=== PATIENT | female | born 1955 | race Two or more races ===

== ENCOUNTER 2023-07-28 06:50 | Inpatient (IN) | payer OTHER ==
[~2023-07-28] VITALS: Ht 165.1 cm; Wt 77.1 kg
[~2023-07-28 06:50] MED LIST: BACLOFEN10 MG PO; CLONAZEPAM0.5 MG PO; CYMBALTA20 MG PO; EVISTA60 MG PO; FIORICET TABLET1 TAB PO; SYNTHROID175 MCG PO; TOPROL XL25 M1 PO
[2023-07-28 14:21] LABS: ALBUMIN 3.4 gm/dL (3.4-5.0); BILIRUBIN TOTAL 0.42 mg/dL (0.3-1.2); CALCIUM 8.3 mg/dL (8.5-10.1); CREATININE SERUM 0.81 mg/dL (0.55-1.02); GFR 69.9; GLOBULINA 2.2 G/DL (2.4-3.5); POTASSIUM 4.46 mEq/L (3.5-5.1); TOTAL PROTEIN 5.6 gm/dL (6.4-8.2)
[2023-07-28 18:21] LABS: HEMATOCRIT 40.1 % (36.0-45.00); HEMOGLOBIN 13.5 g/dL (12.0-15.00); MEAN CELL VOLUME 93.8 fL (80.00-100.00); MEAN CORPUSCULAR HEMOGLOBIN 31.6 pg (27.00-32.0); MEAN CORPUSCULAR HGB CONC 33.7 g/dl (32.0-36.0); PLATELET COUNT 203 K/uL (150-450); RED BLOOD COUNT 4.28 M/uL (4.00-6.00); RED CELL DISTRIBUTION WIDTH 13.3 % (11.5-14.5)
[2023-07-28 22:24] LABS: ALT/SGPT 291 U/L (12-78); AST/SGOT 253 U/L (15-37); LDH 391 U/L (84-246); PHOSPHOKINASE CREATININE 135 U/L (26-192)
[2023-07-29 02:54] LABS: ABG PH 7.408 (7.35-7.45); ABG PO2 165.5 mmHg (80-100); ABG pCO2 37.3 mmHg (35-45); BASE EXCESS -1.2 mmol/l; SaO2 99.5 %; Tco2 24.1 mmol/l
[2023-07-29 02:55] LABS: allen test SATISFACTORY; o2 36 %; puncture site RADIAL RIGHT
[2023-07-29 07:03] LABS: HEMATOCRIT 33.9 % (36.0-45.00); HEMOGLOBIN 11.9 g/dL (12.0-15.00); MEAN CELL VOLUME 93.1 fL (80.00-100.00); MEAN CORPUSCULAR HEMOGLOBIN 32.7 pg (27.00-32.0); MEAN CORPUSCULAR HGB CONC 35.2 g/dl (32.0-36.0); PLATELET COUNT 153 K/uL (150-450); RED BLOOD COUNT 3.64 M/uL (4.00-6.00); RED CELL DISTRIBUTION WIDTH 13.1 % (11.5-14.5)
[2023-07-29 07:23] LABS: ALBUMIN 3.3 gm/dL (3.4-5.0); BILIRUBIN TOTAL 0.49 mg/dL (0.3-1.2); CALCIUM 7.8 mg/dL (8.5-10.1); CREATININE SERUM 0.74 mg/dL (0.55-1.02); GFR 77.59; GLOBULINA 2.2 G/DL (2.4-3.5); MAGNESIUM 2.1 mg/dL (1.8-2.4); POTASSIUM 4.55 mEq/L (3.5-5.1); TOTAL PROTEIN 5.5 gm/dL (6.4-8.2)
[2023-07-30 07:09] LABS: ALT/SGPT 168 U/L (12-78); AST/SGOT 87 U/L (15-37); LDH 238 U/L (84-246); PHOSPHOKINASE CREATININE 104 U/L (26-192)
[2023-07-31 06:14] LABS: MEAN CELL VOLUME 92.5 fL (80.00-100.00); MEAN CORPUSCULAR HEMOGLOBIN 31.9 pg (27.00-32.0); MEAN CORPUSCULAR HGB CONC 34.5 g/dl (32.0-36.0); PLATELET COUNT 152 K/uL (150-450); RED BLOOD COUNT 3.46 M/uL (4.00-6.00); RED CELL DISTRIBUTION WIDTH 13.3 % (11.5-14.5)
[2023-07-31 06:48] LABS: ALBUMIN 3.3 gm/dL (3.4-5.0); BILIRUBIN TOTAL 0.32 mg/dL (0.3-1.2); CALCIUM 8.4 mg/dL (8.5-10.1); CREATININE SERUM 0.46 mg/dL (0.55-1.02); GFR 134.29; GLOBULINA 2.3 G/DL (2.4-3.5); POTASSIUM 3.79 mEq/L (3.5-5.1); TOTAL PROTEIN 5.6 gm/dL (6.4-8.2)
[2023-07-31] MEDS ORDERED: DUI500 PO (18:10)
[2023-07-31] MEDS ORDERED: TOPROL XL25 M1 PO (18:10)
[2023-07-31] MEDS ORDERED: CLONAZEPAM0.5 MG PO (18:11)
[2023-07-31] MEDS ORDERED: FAMOTIDINE20 MG PO (18:11)
[2023-07-31] MEDS ORDERED: LEVO-T137 MCG PO (18:12)
[2023-07-31] MEDS ORDERED: B Complex PO (18:12)
[2023-07-31] MEDS ORDERED: COLCHICINE0.6 MG PO (18:12)
[2023-07-31] MEDS ORDERED: OXYC1TAB9 PO (18:13)
== END 2023-07-31 18:37 | disposition home or self-care (01) | DRG 580 ==
LOC: CIR.AMB 06:50 → O/R 14:13 → ICU 14:13 → SURG 14:41 → ICU 22:34 → MEDI 07-30 13:46
PROVIDERS: Anesthesiology; Internal Medicine; Specialist; ADMIT Internal Medicine Hematology & Oncology; ATTEND Internal Medicine Hematology & Oncology
PROC: BB24ZZZ Computerized Tomography (CT Scan) of Bilateral Lungs (ICD-10-PCS; 2023-07-28)
PROC: B246ZZZ Ultrasonography of Right and Left Heart (ICD-10-PCS; 2023-07-28)
PROC: 0JHD3WZ Insertion of Totally Implantable Vascular Access Device into Right Upper Arm Subcutaneous Tissue and Fascia, Percutaneous Approach (ICD-10-PCS; principal; 2023-07-28 09:30)
PROC: CB121ZZ Planar Nuclear Medicine Imaging of Lungs and Bronchi using Technetium 99m (Tc-99m) (ICD-10-PCS; 2023-07-29)
PROC: 4A12X4Z Monitoring of Cardiac Electrical Activity, External Approach (ICD-10-PCS; 2023-07-30)
DX: C50.912 Malignant neoplasm of unspecified site of left female breast (principal); C77.3 Secondary and unspecified malignant neoplasm of axilla and upper limb lymph nodes; I31.39 Other pericardial effusion (noninflammatory); I31.9 Disease of pericardium, unspecified; I51.3 Intracardiac thrombosis, not elsewhere classified; I95.81 Postprocedural hypotension; I10 Essential (primary) hypertension; Z87.891 Personal history of nicotine dependence
CPT/HCPCS: 71275

== ENCOUNTER 2023-08-28 14:39 | Outpatient (CLI) | payer OTHER ==
[~2023-08-28 14:39] MED LIST changes: +B Complex PO; +COLCHICINE0.6 MG PO; +DUI500 PO; +FAMOTIDINE20 MG PO; +LEVO-T137 MCG PO; +OXYC1TAB9 PO
== END 2023-08-28 14:44 | disposition home or self-care (01) ==
LOC: NUCLEAR 14:39
PROVIDERS: ATTEND Internal Medicine Hematology & Oncology
DX: I82.621 Acute embolism and thrombosis of deep veins of right upper extremity (principal)

== ENCOUNTER 2025-01-02 09:24 | Emergency (ER) | payer OTHER ==
[~2025-01-02] VITALS: Ht 162.6 cm; Wt 72.6 kg
[2025-01-02] MEDS ORDERED: FENTANYL1 EAC3 (09:36)
[2025-01-02] MEDS ORDERED: MORPHINE SULFATE 4 MG/ML VIAL IV ONE ×3 (09:45→15:30)
[2025-01-02 13:16] LABS: PH,URINE 5.5 (5.0-8.0); URINE APPEARANCE Clear; URINE BILIRRUBIN Negative (NEGATIVE); URINE BLOOD Moderate; URINE COLOR Yellow; URINE GLUCOSE Negative (NEGATIVE); URINE LEUKOCYTE Negative; URINE NITRATE Negative; URINE PROTEIN Negative (NEGATIVE); URINE UROBILINOGEN 0.2 E.U./dl
[2025-01-02 13:20] LABS: URINE BACTERIA 7.3 uL (0.0-1933); URINE EPITHELIAL CELLS 7.1 uL (0.0-38.8); URINE RBC 50.8 uL (0.0-20.8); URINE WBC 8.5 uL (0.0-23.2)
[2025-01-02 13:31] LABS: URINE CAST 1.17 uL (0.0-1.40); URINE KETONE 80 (NEGATIVE)
[2025-01-02 14:06] LABS: HEMATOCRIT 40.7 % (34.1-44.9); HEMOGLOBIN 13.5 g/dL (11.2-15.7); LYMPH % 5.6 % (19.3-53.1); MEAN CORPUSCULAR HEMOGLOBIN 29.7 pg (25.6-32.2); MONO % 5.7 % (4.7-12.5); NEUT % 87.9 % (34.0-71.1); PLATELET COUNT 234 K/uL (163-369); RED BLOOD COUNT 4.54 M/uL (3.93-5.22)
[2025-01-02 14:07] LABS: BASO % 0.3 % (0.1-1.2); EOS % 0.1 % (0.7-7.0)
[2025-01-02 14:28] LABS: EOS # 0.01 (0.04-0.54); LYMPH # 0.42 (1.18-3.74); MONO # 0.43 (0.24-0.82); NEUT # 6.65 (1.56-6.13)
== END 2025-01-02 18:20 | disposition home or self-care (01) ==
LOC: ER 09:24
PROVIDERS: Emergency Medicine
DX: Z88.1 Allergy status to other antibiotic agents (principal); Z91.013 Allergy to seafood; S39.82XA Other specified injuries of lower back, initial encounter; W19.XXXA Unspecified fall, initial encounter; Y93.89 Activity, other specified; Y92.098 Other place in other non-institutional residence as the place of occurrence of the external cause; Y99.8 Other external cause status
CPT/HCPCS: 36415; 51702; 72131; 96365; 99284; J2270 ×2

== ENCOUNTER 2025-01-06 10:30 | Emergency (ER) | payer OTHER ==
[~2025-01-06] VITALS: Ht 162.6 cm; Wt 72.6 kg
[~2025-01-06 10:30] MED LIST changes: +FENTANYL1 EAC3
[2025-01-06] MEDS ORDERED: 0.9 % SODIUM CHLORIDE 1,000 ML IV SCH (10:45)
[2025-01-06 11:19] LABS: BASO % 0.3 % (0.1-1.2); EOS # 0.03 (0.04-0.54); EOS % 0.5 % (0.7-7.0); HEMATOCRIT 38.5 % (34.1-44.9); HEMOGLOBIN 13.2 g/dL (11.2-15.7); LYMPH # 0.39 (1.18-3.74); LYMPH % 6.5 % (19.3-53.1); MEAN CORPUSCULAR HEMOGLOBIN 29.7 pg (25.6-32.2); MONO # 0.66 (0.24-0.82); NEUT # 4.86 (1.56-6.13); NEUT % 81.2 % (34.0-71.1); PLATELET COUNT 212 K/uL (163-369); RED BLOOD COUNT 4.44 M/uL (3.93-5.22); RED CELL DISTRIBUTION WIDTH 12.9 % (11.6-14.4)
[2025-01-06 11:27] LABS: URINE APPEARANCE Clear; URINE BILIRRUBIN Negative (NEGATIVE); URINE BLOOD Small; URINE COLOR Yellow; URINE GLUCOSE Negative (NEGATIVE); URINE KETONE 15 (NEGATIVE); URINE LEUKOCYTE Negative; URINE NITRATE Negative; URINE PROTEIN Trace (NEGATIVE); URINE UROBILINOGEN 0.2 E.U./dl
[2025-01-06 11:33] LABS: URINE BACTERIA 7.3 uL (0.0-1933); URINE EPITHELIAL CELLS 1.8 uL (0.0-38.8); URINE RBC 43.7 uL (0.0-20.8); URINE WBC 2.3 uL (0.0-23.2)
[2025-01-06 11:50] LABS: TYPE CELLS SQUAMOUS
[2025-01-06 11:58] LABS: CALCIUM 9.7 mg/dL (8.5-10.1); CREATININE SERUM 0.9 mg/dL (0.55-1.02); GFR 61.72; POTASSIUM 3.69 mEq/L (3.5-5.1)
[2025-01-06] MEDS ORDERED: MORPHINE SULFATE 4 MG/ML VIAL IV ONE (15:00)
== END 2025-01-06 16:26 | disposition home or self-care (01) ==
LOC: ER 10:30
PROVIDERS: Emergency Medicine
DX: R33.8 Other retention of urine (principal); Z91.013 Allergy to seafood; Z88.6 Allergy status to analgesic agent; Z91.041 Radiographic dye allergy status; Z85.3 Personal history of malignant neoplasm of breast; Z85.89 Personal history of malignant neoplasm of other organs and systems; C50.912 Malignant neoplasm of unspecified site of left female breast; C77.3 Secondary and unspecified malignant neoplasm of axilla and upper limb lymph nodes
CPT/HCPCS: 36415; 51702; 96365; 96366; 99283; J2270; J7030

== ENCOUNTER 2025-01-17 09:26 | Inpatient (IN) | payer OTHER ==
[~2025-01-17] VITALS: Ht 167.6 cm; Wt 79.4 kg
--- NOTE | 2025-01-17 09:39 | NUR ---
SE RECIBE PTE EN AMBULANCIA EN COMPANIA DE PARAMEDICOS. PTE REFIERE HEMATURIA, DOLOR ABDOMINAL, DYSPHAGIA.
--- NOTE | 2025-01-17 09:40 | NUR ---
SE RECIBE PTE EN AMBULANCIA EN COMPANIA DE PARAMEDICOS. PTE REFIERE HEMATURIA, DOLOR ABDOMINAL Y NO PUEDE TRAGAR. PTE DE LA . SE MEHUL SV Y SE UBICA
[2025-01-17] MEDS ORDERED: 0.9 % SODIUM CHLORIDE 1,000 ML IV SCH ×2 (10:00→22:30)
--- NOTE | 2025-01-17 10:10 | NUR ---
RN JOSHI ORIENTA SOBRE [place] MEDICO Y LA MISMA REFIERE ACEPTAR. COLECTA MUESTRAS DE LAB BAJO MEDIDAS ASEPTICAS. SE NOTIFICA XRAY PENDIENTE
[2025-01-17 10:32] LABS: BASO % 0.2 % (0.1-1.2); EOS # 0.11 (0.04-0.54); EOS % 1.0 % (0.7-7.0); LYMPH # 0.08 (1.18-3.74); LYMPH % 0.8 % (19.3-53.1); MEAN PLATELET VOLUME 11.40 fl (9.4-12.4); MONO # 0.18 (0.24-0.82); MONO % 1.7 % (4.7-12.5); NEUT # 10.14 (1.56-6.13); NEUT % 95.5 % (34.0-71.1); RED CELL DISTRIBUTION WIDTH 12.8 % (11.6-14.4)
[2025-01-17 11:09] LABS: COVID-19 AG NEGATIVE (NEGATIVE)
--- NOTE | 2025-01-17 11:22 | NUR ---
PTE EVALUADO POR DR. HILTON, PRESENTANDO DOLOR GENERALIZADO UBICADO EN SECCION K9 JUNTO A FAMILIAR, SE REMUEVE CONN CATHETER CON MAS DE DOS SEMANAS DE INSECCION Y SE INSERTA CONN CATHETER #16 BAJO MEDIDAS ASEPTICAS Y SE COLECTA MUESTRA DE PAULA BAJO MEDIDAS ASEPTICAS. CLIENTE Y FAMILIAR SON ORIENTADOS SOBRE PROCEDIMIENTOS REALIZADOS Y PROCESO DE RE-EVALUACION MEDICA. SE M,ANTIENE EN OBSERVACION POR CAMBIOS DENTRO DE MARSHALL CONDICION.
[2025-01-17 11:38] LABS: URINE APPEARANCE Turbid; URINE BILIRRUBIN Small (NEGATIVE); URINE BLOOD Large; URINE COLOR Orange; URINE GLUCOSE Negative (NEGATIVE); URINE LEUKOCYTE Large; URINE NITRATE Positive; URINE UROBILINOGEN 1.0 E.U./dl
[2025-01-17 11:58] LABS: URINE BACTERIA > 9821.5 uL (0.0-1933); URINE CAST 0.00 uL (0.0-1.40); URINE EPITHELIAL CELLS 0.9 uL (0.0-38.8); URINE KETONE >=160 (NEGATIVE); URINE PROTEIN 300 (NEGATIVE); URINE RBC > 10558.9 uL (0.0-20.8); URINE WBC > 5548.3 uL (0.0-23.2)
[2025-01-17] MEDS ORDERED: ONDANSETRON HCL 2 MG/ML VIAL IV ONE (12:00)
[2025-01-17] MEDS ORDERED: PANTOPRAZOLE SODIUM 40 MG/VIAL VIAL IV PUSH ONE (12:00)
[2025-01-17 12:42] LABS: ALT/SGPT 23.0 U/L (12-78); AST/SGOT 25.0 U/L (15-37); BILIRUBIN TOTAL 0.99 mg/dL (0.3-1.2); BUN CREA RATIO 35.0 (7.0-25.0); CREATININE SERUM 0.52 mg/dL (0.55-1.02); GFR 116.24; GLOBULINA 2.6 G/DL (2.4-3.5); GLUCOSE FASTING 106.0 mg/dL (65-100); OSMOLALITY SERUM 274.0 MOSM/KG (275-295)
[2025-01-17] MEDS ORDERED: CEFTRIAXONE SODIUM 1,000 MG VIAL IV ONE (13:15)
[2025-01-17] MEDS ORDERED: MORPHINE SULFATE 4 MG/ML VIAL IV ONE (15:15)
[2025-01-17] MEDS ORDERED: MORPHINE SULFATE 4 MG/ML CARTRIDGE IV STA (15:40)
[2025-01-17] MEDS ORDERED: CEFTRIAXONE SODIUM 2,000 MG in 0.9 % SODIUM CHLORIDE 100 ML IV SCH (18:16)
[2025-01-17] MEDS ORDERED: MORPHINE SULFATE 4 MG/ML CARTRIDGE IV PRN (18:30)
[2025-01-17] MEDS ORDERED: METHYLPREDNISOLONE SOD SUCC 125 MG VIAL IV ONE (19:15)
[2025-01-17] MEDS ORDERED: DIPHENHYDRAMINE HCL 50 MG/ML VIAL 1ML IV ONE (19:15)
[2025-01-17] MEDS ORDERED: PANTOPRAZOLE SODIUM 40 MG/VIAL VIAL IV SCH (22:33)
[2025-01-17] MEDS ORDERED: ONDANSETRON HCL 4 MG in 0.9 % SODIUM CHLORIDE 50 ML IV ONE (22:45)
[2025-01-17] MEDS ORDERED: ONDANSETRON HCL 4 MG in 0.9 % SODIUM CHLORIDE 50 ML IV PRN (22:45)
[2025-01-18 03:22] LABS: INR 1.05
[2025-01-18 04:00] VITALS: BP 114/72; O2SAT 96
[2025-01-18] MEDS ORDERED: LEVOTHYROXINE SODIUM 125 MCG TABLET PO SCH (06:00)
[2025-01-18] MEDS ORDERED: GABAPENTIN 600 MG TABLET PO SCH (09:00)
[2025-01-18] MEDS ORDERED: METOPROLOL SUCCINATE 25 MG TAB.SR.24H PO SCH (09:00)
[2025-01-18] MEDS ORDERED: ENOXAPARIN SODIUM 40 MG/0.4 ML SYRINGE SUBCUTANEO SCH (09:00)
[2025-01-18] MEDS ORDERED: TAMSULOSIN HCL 0.4 MG CAP PO SCH (09:00)
[2025-01-18 09:04] VITALS: BP 106/71; O2SAT 93
[2025-01-18] MEDS ORDERED: fentaNYL 50 MCG PATCH.TD72 TD STA (17:40)
[2025-01-18] MEDS ORDERED: MORPHINE SULFATE 2 MG/ML CARTRIDGE IV PRN (18:33)
[2025-01-18 20:58] VITALS: BP 145/78
[2025-01-18] MEDS ORDERED: FAMOTIDINE/PF 20 MG/2 ML VIAL IV PUSH SCH (22:12)
[2025-01-18] MEDS ORDERED: GABAPENTIN 250 MG/5 ML ML PO SCH (22:12)
[2025-01-18] MEDS ORDERED: ORPHENADRINE CITRATE 30 MG/ML AMPUL IM ONE (22:15)
[2025-01-18] MEDS ORDERED: NALOXONE HCL 0.4 MG/ML AMPUL IV PRN (23:45)
[2025-01-19] VITALS (8 sets, daily range): BP systolic 117–140; BP diastolic 69–79; O2SAT 96–97
[2025-01-19] MEDS ORDERED: GABAPENTIN 250 MG/5 ML ML PO SCH (09:00)
[2025-01-19] MEDS ORDERED: PANTOPRAZOLE SODIUM 40 MG/VIAL VIAL IV SCH (09:00)
[2025-01-20 01:15] VITALS: BP 117/71; O2SAT 96
[2025-01-20 08:39] VITALS: BP 117/71; O2SAT 97
[2025-01-20] MEDS ORDERED: DEXAMETHASONE SODIUM PHOSP/PF 10 MG/ML VIAL IV STA (15:05)
[2025-01-20] MEDS ORDERED: DOCUSATE SODIUM 100MG CAP PO SCH (17:00)
[2025-01-20 18:33] VITALS: BP 127/76; O2SAT 97
[2025-01-20] MEDS ORDERED: DEXAMETHASONE SODIUM PHOSPHATE 4 MG/ML VIAL IV SCH (20:00)
[2025-01-20] MEDS ORDERED: MORPHINE SULFATE 2 MG/ML CARTRIDGE IV PRN (23:30)
[2025-01-21 03:14] VITALS: BP 114/78; O2SAT 99
[2025-01-21] MEDS ORDERED: fentaNYL 50 MCG PATCH.TD72 TD SCH (09:00)
[2025-01-21 10:50] VITALS: BP 132/74; O2SAT 95
[2025-01-21] MEDS ORDERED: DOCUSATE SODIUM 100MG CAP PO SCH (13:00)
[2025-01-21 16:32] VITALS: BP 101/62; O2SAT 97
[2025-01-22 02:58] VITALS: BP 115/75; O2SAT 97
[2025-01-22 08:43] VITALS: BP 129/75; O2SAT 98
[2025-01-22 17:25] VITALS: BP 93/55; O2SAT 99
[2025-01-23 00:03] VITALS: BP 92/55; O2SAT 97
[2025-01-23 06:33] LABS: BASO % 0.1 % (0.1-1.2); EOS # 0.02 (0.04-0.54); EOS % 0.2 % (0.7-7.0); LYMPH # 0.18 (1.18-3.74); LYMPH % 1.9 % (19.3-53.1); MEAN PLATELET VOLUME 10.30 fl (9.4-12.4); MONO # 0.61 (0.24-0.82); MONO % 6.5 % (4.7-12.5); NEUT # 8.42 (1.56-6.13); NEUT % 90.2 % (34.0-71.1); RED CELL DISTRIBUTION WIDTH 12.2 % (11.6-14.4)
[2025-01-23] MEDS ORDERED: MORPHINE SULFATE 2 MG/ML CARTRIDGE IV PRN (06:45)
[2025-01-23 06:55] LABS: BUN CREA RATIO 35.0 (7.0-25.0); CREATININE SERUM 0.52 mg/dL (0.55-1.02); GFR 116.24; GLUCOSE FASTING 116.0 mg/dL (65-100); OSMOLALITY SERUM 282.0 MOSM/KG (275-295)
[2025-01-23] MEDS ORDERED: MINERAL OIL 30 ML BLIST.PACK PO SCH (09:00)
[2025-01-23 10:00] VITALS: BP 108/55; O2SAT 99
[2025-01-23 17:08] VITALS: BP 105/60; O2SAT 100
[2025-01-24] VITALS: BP 137/79; O2SAT 100
[2025-01-24 09:11] VITALS: BP 112/56; O2SAT 99
[2025-01-24 17:01] VITALS: BP 106/61; O2SAT 96
[2025-01-24] MEDS ORDERED: PANTOPRAZOLE SODIUM 40 MG TABLET.DR PO SCH (21:00)
[2025-01-25 02:11] VITALS: BP 112/74; O2SAT 95
[2025-01-25 09:04] VITALS: BP 120/69; O2SAT 98
[2025-01-25 17:18] VITALS: BP 112/70; O2SAT 96
[2025-01-26 02:30] VITALS: BP 115/72; O2SAT 97
[2025-01-26 07:00] VITALS: BP 95/61; O2SAT 99
[2025-01-26 14:12] LABS: BASO % 0.1 % (0.1-1.2); EOS # 0.06 (0.04-0.54); EOS % 0.6 % (0.7-7.0); LYMPH # 0.24 (1.18-3.74); LYMPH % 2.4 % (19.3-53.1); MEAN PLATELET VOLUME 9.80 fl (9.4-12.4); MONO # 0.82 (0.24-0.82); MONO % 8.2 % (4.7-12.5); NEUT # 8.70 (1.56-6.13); NEUT % 87.1 % (34.0-71.1); RED CELL DISTRIBUTION WIDTH 12.4 % (11.6-14.4)
[2025-01-26 14:43] LABS: ALT/SGPT 36.0 U/L (12-78); AST/SGOT 20.0 U/L (15-37); BILIRUBIN TOTAL 0.35 mg/dL (0.3-1.2); BUN CREA RATIO 25.0 (7.0-25.0); CREATININE SERUM 0.52 mg/dL (0.55-1.02); GFR 116.24; GLOBULINA 2.4 G/DL (2.4-3.5); GLUCOSE FASTING 114.0 mg/dL (65-100); OSMOLALITY SERUM 277.0 MOSM/KG (275-295)
[2025-01-26 17:06] VITALS: BP 121/62
[2025-01-26] MEDS ORDERED: PANTOPRAZOLE SODIUM 40 MG/VIAL VIAL IV SCH (21:00)
[2025-01-27 02:23] VITALS: BP 105/68; O2SAT 97
[2025-01-27 09:20] VITALS: BP 130/69
[2025-01-27] MEDS ORDERED: LACTOBACILLUS ACIDOPHILUS 1 CAP CAP PO NR (10:30)
[2025-01-27] MEDS ORDERED: LACTOBACILLUS ACIDOPHILUS 1 CAP CAP PO SCH (13:00)
[2025-01-27 17:07] VITALS: BP 110/84; O2SAT 98
[2025-01-28 01:08] VITALS: BP 104/67; O2SAT 97
[2025-01-28 08:00] VITALS: BP 99/61; O2SAT 99
[2025-01-28 09:07] VITALS: BP 105/63; O2SAT 98
[2025-01-28 18:21] VITALS: BP 108/62; O2SAT 100
[2025-01-29 01:23] VITALS: BP 104/65; O2SAT 100
[2025-01-29 09:54] VITALS: BP 116/72; O2SAT 100
[2025-01-29 17:10] VITALS: BP 127/70; O2SAT 100
[2025-01-30 00:58] VITALS: BP 103/59; O2SAT 97
[2025-01-30 09:32] VITALS: BP 109/65; O2SAT 97
[2025-01-30 13:09] LABS: COVID-19 AG NEGATIVE (NEGATIVE)
[2025-01-30 17:17] VITALS: BP 135/80; O2SAT 97
[2025-01-31 01:06] VITALS: BP 102/62; O2SAT 96
[2025-01-31 09:09] VITALS: BP 107/67; O2SAT 98
[2025-01-31] MEDS ORDERED: PANTOPRAZOLE SODIUM 40 MG TABLET.DR PO SCH (21:00)
== END 2025-01-31 14:55 | DRG 690 ==
LOC: ER 09:26 → MEDI 22:36
PROVIDERS: Emergency Medicine; General Practice; Internal Medicine; ADMIT Internal Medicine; ATTEND Internal Medicine
PROC: BR29YZZ Computerized Tomography (CT Scan) of Lumbar Spine using Other Contrast (ICD-10-PCS; principal; 2025-01-17)
PROC: BW21YZZ Computerized Tomography (CT Scan) of Abdomen and Pelvis using Other Contrast (ICD-10-PCS; 2025-01-17)
PROC: BR27ZZZ Computerized Tomography (CT Scan) of Thoracic Spine (ICD-10-PCS; 2025-01-17)
PROC: BR37ZZZ Magnetic Resonance Imaging (MRI) of Thoracic Spine (ICD-10-PCS; 2025-01-18)
DX: N39.0 Urinary tract infection, site not specified (principal); C79.51 Secondary malignant neoplasm of bone; C79.52 Secondary malignant neoplasm of bone marrow; C77.3 Secondary and unspecified malignant neoplasm of axilla and upper limb lymph nodes; C78.02 Secondary malignant neoplasm of left lung; C78.01 Secondary malignant neoplasm of right lung; C79.81 Secondary malignant neoplasm of breast; G95.29 Other cord compression; D84.89 Other immunodeficiencies; C50.919 Malignant neoplasm of unspecified site of unspecified female breast; G89.3 Neoplasm related pain (acute) (chronic); M54.6 Pain in thoracic spine; M54.59 Other low back pain; M48.05 Spinal stenosis, thoracolumbar region; R31.0 Gross hematuria; R13.19 Other dysphagia; R20.2 Paresthesia of skin; K59.09 Other constipation; E03.9 Hypothyroidism, unspecified; Z88.0 Allergy status to penicillin; Z92.21 Personal history of antineoplastic chemotherapy; Z92.3 Personal history of irradiation
CPT/HCPCS: 72157